=== PATIENT | male | born 1955 ===

== ENCOUNTER 2018-06-22 09:26 | Outpatient (REF) | payer BC, SELFPAY ==
[2018-06-22 22:06] LABS: BUN 19 mg/dL (7-18); CREATININE 1.09 mg/dL (0.70-1.30); Chloride 105 mmol/L (98-107); Glucose 83 mg/dL (70-100); Magnesium 1.8 mg/dL (1.8-2.4); Potassium 4.7 mmol/L (3.5-5.1); Sodium 141 mmol/L (136-145)
== END 2018-06-22 09:46 ==
LOC: NCHCN 09:26
PROVIDERS: Visit Provider Family Medicine
DX: R25.2 Cramp and spasm (principal)
CPT/HCPCS: 80048; 83735; 84443

== ENCOUNTER 2019-11-27 11:22 | Outpatient (REF) | payer BC, SELFPAY ==
[2019-11-27 22:13] LABS: Anion Gap 7.2 mmol/L (3-11); BUN 15 mg/dL (7-18); CO2 29.8 mmol/L (21.0-32.0); CREATININE 0.98 mg/dL (0.70-1.30); Calculated LDL 75 mg/dL (<100); Chloride 105 mmol/L (98-107); Cholesterol 127 mg/dL (<200); Glucose 91 mg/dL (74-106); HDL Cholesterol 45 mg/dL (40-60); Potassium 4.8 mmol/L (3.5-5.1); Sodium 142 mmol/L (136-145); Triglyceride 39 mg/dL (<150)
[2019-11-29 10:22] LABS: PSA, Screening 5.6 ng/mL (0.0-4.5)
== END 2019-11-27 11:42 ==
LOC: NCHCN 11:22
PROVIDERS: PCP Family Medicine; Visit Provider Family Medicine
DX: Z00.00 Encounter for general adult medical examination without abnormal findings (principal); Z13.220 Encounter for screening for lipoid disorders; Z13.228 Encounter for screening for other metabolic disorders; Z12.5 Encounter for screening for malignant neoplasm of prostate
CPT/HCPCS: 80048; 80061; 84153

== ENCOUNTER 2019-12-25 08:47 | Outpatient (REF) | payer BC, SELFPAY ==
[2019-12-27 10:15] LABS: PSA, Screening 7.2 ng/mL (0.0-4.5)
== END 2019-12-25 09:07 ==
LOC: NCHCN 08:47
PROVIDERS: PCP Family Medicine; Visit Provider Family Medicine
DX: R97.20 Elevated prostate specific antigen [PSA] (principal); Z12.5 Encounter for screening for malignant neoplasm of prostate
CPT/HCPCS: 84153

== ENCOUNTER 2022-01-19 12:11 | Outpatient (REF) | payer MEDICARE, SELFPAY | END 2022-01-19 12:12 | disposition home or self-care (01) | LOC: NCHCN 12:11 | PROVIDERS: PCP Family Medicine; Visit Provider Internal Medicine | DX: M79.651 Pain in right thigh (principal); L98.8 Other specified disorders of the skin and subcutaneous tissue | CPT/HCPCS: 87077; 87070; 87186; 87205 ==

== ENCOUNTER 2023-02-02 11:58 | Outpatient (REF) | payer MEDICARE, SELFPAY ==
[2023-02-02 15:05] LABS: ALT 28 U/L (16-63); AST 20 U/L (15-37); Albumin 3.7 g/dL (3.4-5.0); Alkaline Phosphatase 56 U/L (46-116); Anion Gap 5.2 mmol/L (3-11); BUN 16 mg/dL (7-18); Bilirubin, Total 0.9 mg/dL (0.2-1.0); CO2 29.8 mmol/L (21.0-32.0); CREATININE 1.1 mg/dL (0.70-1.30); Calcium 8.9 mg/dL (8.5-10.1); Calculated LDL 86 mg/dL (<100); Chloride 105 mmol/L (98-107); Cholesterol 152 mg/dL (<200); Estimated GFR 73.58 (mL/min/1.73m2); Glucose 87 mg/dL (74-106); HDL Cholesterol 57 mg/dL (40-60); Potassium 4.7 mmol/L (3.5-5.1); Sodium 140 mmol/L (136-145); Total Protein 7.3 g/dL (6.4-8.2); Triglyceride 45 mg/dL (<150)
== END 2023-02-02 11:59 | disposition home or self-care (01) ==
LOC: NCHCN 11:58
PROVIDERS: PCP Family Medicine; Visit Provider Family Medicine
DX: R60.0 Localized edema (principal); Z13.6 Encounter for screening for cardiovascular disorders; Z00.00 Encounter for general adult medical examination without abnormal findings
CPT/HCPCS: 80053; 80061

== ENCOUNTER 2025-05-29 14:53 | Outpatient (REF) | payer MEDICARE, SELFPAY ==
[2025-05-29 16:04] LABS: Abs Immature Grans 0.03 10^3/uL (0.0-0.06); HCT 42.5 % (40.0-50.0); HGB 14.4 g/dL (13.5-17.5); Immature Grans % 0.5 %; MCH 31.2 pg (27.0-33.0); MCHC 33.9 % (32.0-36.0); MCV 92 fL (80-95); MPV 8.9 fL (8.0-11.0); Platelet Count 200 10^3/uL (130-400); RBC 4.62 10^6/uL (4.36-5.78); RDW 13.1 % (11.8-14.1); RDW-SD 43.8 fL; WBC 6.34 10^3/uL (4.4-10.8)
[2025-05-29 16:21] LABS: ALT 39 U/L (16-63); AST 27 U/L (15-37); Albumin 3.7 g/dL (3.4-5.0); Alkaline Phosphatase 54 U/L (46-116); Anion Gap 5.4 mmol/L (3-11); BUN 22 mg/dL (7-18); Bilirubin, Total 1.1 mg/dL (0.2-1.0); C-Reactive Protein 12.55 mg/dL (<or=0.5); CO2 29.6 mmol/L (21.0-32.0); Calcium 9.1 mg/dL (8.5-10.1); Chloride 101 mmol/L (98-107); Estimated GFR 59.10 (mL/min/1.73m2); Glucose 119 mg/dL (74-106); Potassium 4.3 mmol/L (3.5-5.1); Sodium 136 mmol/L (136-145); Total Protein 7.4 g/dL (6.4-8.2)
[2025-05-29 23:42] LABS: PSA, Screening 0.2 ng/mL (<=6.5)
== END 2025-05-29 14:54 | disposition home or self-care (01) ==
LOC: NCHCN 14:53
PROVIDERS: PCP Family Medicine; Visit Provider Family Medicine
DX: R19.09 Other intra-abdominal and pelvic swelling, mass and lump (principal); C61 Malignant neoplasm of prostate
CPT/HCPCS: 80053; 84153; 85025; 86140

== ENCOUNTER 2025-07-02 16:23 | Outpatient (REF) | payer MEDICARE, SELFPAY ==
[2025-07-02 18:54] LABS: Abs Immature Grans 0.02 10^3/uL (0.0-0.06); HCT 39.4 % (40.0-50.0); HGB 13.1 g/dL (13.5-17.5); Immature Grans % 0.4 %; MCH 31.0 pg (27.0-33.0); MCHC 33.2 % (32.0-36.0); MCV 93 fL (80-95); MPV 9.2 fL (8.0-11.0); Platelet Count 209 10^3/uL (130-400); RBC 4.23 10^6/uL (4.36-5.78); RDW 13.7 % (11.8-14.1); RDW-SD 46.4 fL; WBC 4.61 10^3/uL (4.4-10.8)
[2025-07-02 19:04] LABS: ALT 27 U/L (16-63); AST 17 U/L (15-37); Albumin 3.6 g/dL (3.4-5.0); Alkaline Phosphatase 76 U/L (46-116); Anion Gap 4.9 mmol/L (3-11); BUN 20 mg/dL (7-18); Bilirubin, Total 0.6 mg/dL (0.2-1.0); CO2 31.1 mmol/L (21.0-32.0); Calcium 8.4 mg/dL (8.5-10.1); Chloride 106 mmol/L (98-107); Estimated GFR 65.06 (mL/min/1.73m2); Glucose 111 mg/dL (74-106); Potassium 4.7 mmol/L (3.5-5.1); Sodium 142 mmol/L (136-145); Total Protein 6.3 g/dL (6.4-8.2)
[2025-07-02 19:06] LABS: C-Reactive Protein < 0.50 mg/dL (<or=0.5)
== END 2025-07-02 16:24 | disposition home or self-care (01) ==
LOC: LBN 16:23
PROVIDERS: PCP Family Medicine; Visit Provider Pediatrics
DX: G06.2 Extradural and subdural abscess, unspecified (principal); B95.4 Other streptococcus as the cause of diseases classified elsewhere
CPT/HCPCS: 80053; 85025; 86140

== ENCOUNTER 2025-07-09 20:41 | Outpatient (REF) | payer MEDICARE, SELFPAY ==
[2025-07-09 17:12] LABS: Abs Immature Grans 0.03 10^3/uL (0.0-0.06); HCT 38.8 % (40.0-50.0); HGB 13.0 g/dL (13.5-17.5); Immature Grans % 0.7 %; MCH 31.1 pg (27.0-33.0); MCHC 33.5 % (32.0-36.0); MCV 93 fL (80-95); MPV 9.1 fL (8.0-11.0); Platelet Count 222 10^3/uL (130-400); RBC 4.18 10^6/uL (4.36-5.78); RDW 14.0 % (11.8-14.1); RDW-SD 46.6 fL; WBC 4.21 10^3/uL (4.4-10.8)
[2025-07-09 17:27] LABS: ALT 35 U/L (16-63); AST 19 U/L (15-37); Albumin 3.5 g/dL (3.4-5.0); Alkaline Phosphatase 71 U/L (46-116); Anion Gap 7.0 mmol/L (3-11); BUN 13 mg/dL (7-18); Bilirubin, Total 0.7 mg/dL (0.2-1.0); CO2 30.0 mmol/L (21.0-32.0); Calcium 8.5 mg/dL (8.5-10.1); Chloride 103 mmol/L (98-107); Estimated GFR 80.97 (mL/min/1.73m2); Glucose 83 mg/dL (74-106); Potassium 4.5 mmol/L (3.5-5.1); Sodium 140 mmol/L (136-145); Total Protein 6.2 g/dL (6.4-8.2)
[2025-07-09 17:30] LABS: C-Reactive Protein < 0.50 mg/dL (<or=0.5)
== END 2025-07-09 20:42 | disposition home or self-care (01) ==
LOC: LBN 20:41
PROVIDERS: PCP Family Medicine; Visit Provider Pediatrics
DX: G06.2 Extradural and subdural abscess, unspecified (principal)
CPT/HCPCS: 80053; 85025; 86140